=== PATIENT | male | born 1985 | race Caucasian/White ===

== ENCOUNTER 2023-04-14 01:34 | Emergency (ER) | payer OTHER ==
[2023-04-14] MEDS ORDERED: ORPHENADRINE 30 MG/ML 2 ML VIAL IM STA (01:52)
[2023-04-14] MEDS ORDERED: KETOROLAC 15 MG/ML 1 ML VIAL IM STA (01:52)
[2023-04-14] MEDS ORDERED: DEXAMETHASONE SOD PHOSPHATE 10 MG/ML 1 ML VIAL IM STA (01:52)
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
[2023-04-14 02:45] VITALS: BP 128/74; PULSE 71; RESP 20; TEMP 98.2
[2023-04-14] MEDS ORDERED: LIDOCAINE 5% PATCH TOPICAL SCH (09:00)
== END 2023-04-14 03:07 | disposition home or self-care (01) ==
LOC: EC 01:34
DX: S39.012A Strain of muscle, fascia and tendon of lower back, initial encounter (principal); F17.290 Nicotine dependence, other tobacco product, uncomplicated; Z88.5 Allergy status to narcotic agent; W06.XXXA Fall from bed, initial encounter
CPT/HCPCS: 99283; 96372 ×3; J1100; J2360; J1885

== ENCOUNTER 2023-05-08 02:09 | Emergency (ER) | payer OTHER ==
[2023-05-08 02:22] VITALS: RESP 16
[2023-05-08] MEDS ORDERED: MORPHINE SULFATE 4 MG/ML SYRINGE IV STA (03:11)
[2023-05-08 03:44] LABS: Basophils % (A) 0 %; Eosinophils # (A) 0.2 k/uL (0-0.7); Eosinophils % (A) 2 %; HCT 48.2 % (39.0-53.0); HGB 16.3 gm/dL (13.0-17.5); Lymphocytes # (A) 2.7 k/uL (1.0-4.8); Lymphocytes % (A) 32 %; MCHC 33.7 g/dL (31.0-37.0); MCV 85.9 fL (80.0-100.0); Mean Platelet Volume 7.6; Monocytes # (A) 0.5 k/uL (0-1.0); Monocytes % (A) 5 %; Neutrophils # (A) 4.9 k/uL (1.3-7.7); Neutrophils % (A) 58 %; Platelet Count 230 k/uL (150-450); RBC 5.61 m/uL (4.30-5.90); RDW 13.7 % (11.5-15.5); WBC 8.4 k/uL (3.8-10.6)
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
[2023-05-08 03:50] LABS: AST 367 U/L (17-59); African American GFR (CKD) >90 (>60 ml/min/1.73 sqM); Albumin 3.9 g/dL (3.5-5.0); Alkaline Phosphatase 58 U/L (38-126); Anion Gap 10 mmol/L; Blood Urea Nitrogen 14 mg/dL (9-20); Calcium 8.8 mg/dL (8.4-10.2); Carbon Dioxide 20 mmol/L (22-30); Chloride 108 mmol/L (98-107); Glucose 140 mg/dL (74-99); Lipase 108 U/L (23-300); Magnesium 2.3 mg/dL (1.6-2.3); Non-African American GFR(CKD) >90 (>60 ml/min/1.73 sqM); Sodium 138 mmol/L (137-145); Total Bilirubin 0.5 mg/dL (0.2-1.3); Total Protein 7.5 g/dL (6.3-8.2)
[2023-05-08 03:55] LABS: INR 1.1 (<1.2); Partial Thromboplastin Time 23.9 sec (22.0-30.0); Prothrombin Time 11.8 sec (9.0-12.0)
[2023-05-08 03:56] LABS: ALT 1090 U/L (4-49)
[2023-05-08] MEDS ORDERED: SODIUM CHLORIDE 0.9% 1,000 ML IV STA (04:32)
[2023-05-08 06:46] VITALS: BP 117/64; PULSE 73; TEMP 98.1
--- NOTE | 2023-05-08 07:42 | XR ---
EXAMINATION TYPE: XR chest 1V portable DATE OF EXAM: 05/08/2023 COMPARISON: None INDICATION: Chest pain nausea vomiting TECHNIQUE: Single frontal view of the chest is obtained. FINDINGS: The heart size is normal. The pulmonary vasculature is normal. The lungs are clear. IMPRESSION: 1. No acute pulmonary process.
[2023-05-08 11:17] LABS: Hepatitis C IgG Antibody Reactive (Non-Reactive)
[2023-05-08 11:25] LABS: Hepatitis A Antibody IgM Nonreactive; Hepatitis B Core IgM Nonreactive; Hepatitis B Surface Antigen Nonreactive
== END 2023-05-08 07:37 | disposition home or self-care (01) ==
LOC: EC 02:09
DX: R07.89 Other chest pain (principal); F17.290 Nicotine dependence, other tobacco product, uncomplicated; Z88.5 Allergy status to narcotic agent
CPT/HCPCS: 36415; 93005; 85379; 83880; 80053; 80074; 83690; 83735; 84484; 85025; 85610; 85730; 71045; 99285; 96374; J2270

== ENCOUNTER 2023-05-14 21:22 | Emergency (ER) | payer OTHER ==
[2023-05-14] MEDS ORDERED: SODIUM CHLORIDE 0.9% 1,000 ML IV ONE (21:38)
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
[2023-05-14 21:53] LABS: Basophils % (A) 0 %; Eosinophils % (A) 0 %; HGB 14.8 gm/dL (13.0-17.5); Lymphocytes # (A) 0.8 k/uL (1.0-4.8); Lymphocytes % (A) 7 %; MCH 28.1 pg (25.0-35.0); MCHC 32.3 g/dL (31.0-37.0); MCV 87.2 fL (80.0-100.0); Mean Platelet Volume 7.2; Monocytes # (A) 0.5 k/uL (0-1.0); Monocytes % (A) 4 %; Neutrophils # (A) 11.3 k/uL (1.3-7.7); Neutrophils % (A) 89 %; Platelet Count 206 k/uL (150-450); RBC 5.27 m/uL (4.30-5.90); RDW 13.3 % (11.5-15.5); WBC 12.8 k/uL (3.8-10.6)
[2023-05-14 21:56] VITALS: RESP 18; TEMP 98.2
[2023-05-14 22:07] LABS: African American GFR (CKD) 82 (>60 ml/min/1.73 sqM); Anion Gap 9 mmol/L; Blood Urea Nitrogen 14 mg/dL (9-20); Calcium 8.3 mg/dL (8.4-10.2); Carbon Dioxide 24 mmol/L (22-30); Chloride 105 mmol/L (98-107); Glucose 169 mg/dL (74-99); Non-African American GFR(CKD) 71 (>60 ml/min/1.73 sqM); Potassium 4.2 mmol/L (3.5-5.1); Sodium 138 mmol/L (137-145)
[2023-05-14 23:57] VITALS: BP 135/82; PULSE 82
== END 2023-05-14 23:36 | disposition home or self-care (01) ==
LOC: EC 21:22
DX: T40.601A Poisoning by unspecified narcotics, accidental (unintentional), initial encounter (principal); F17.290 Nicotine dependence, other tobacco product, uncomplicated; Z88.5 Allergy status to narcotic agent
CPT/HCPCS: 36415; 80048; 85025; 93005; 96360; 99284

== ENCOUNTER 2023-05-15 02:30 | Inpatient (IN) | payer OTHER ==
[2023-05-15] MEDS ORDERED: NALOXONE 0.4 MG/ML 1 ML VIAL IVP PRN (02:40)
[2023-05-15] MEDS ORDERED: SODIUM CHLORIDE 0.9% 1,000 ML IV ONE (02:41)
[2023-05-15] MEDS ORDERED: NALOXONE 0.4 MG/ML 1 ML VIAL IVP STA ×2 (02:43→04:50)
[2023-05-15] MEDS ORDERED: ONDANSETRON 4 MG/2 ML VIAL IVP STA (02:52)
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
[2023-05-15] MEDS ORDERED: METOCLOPRAMIDE 5 MG/ML 2 ML VIAL IVP STA (03:28)
[2023-05-15 03:36] LABS: Basophils % (A) 0 %; Eosinophils % (A) 0 %; HCT 47.8 % (39.0-53.0); HGB 16.1 gm/dL (13.0-17.5); Lymphocytes % (A) 8 %; MCH 29.7 pg (25.0-35.0); MCHC 33.6 g/dL (31.0-37.0); MCV 88.4 fL (80.0-100.0); Mean Platelet Volume 7.3; Monocytes # (A) 0.6 k/uL (0-1.0); Monocytes % (A) 5 %; Neutrophils # (A) 10.6 k/uL (1.3-7.7); Neutrophils % (A) 86 %; Platelet Count 223 k/uL (150-450); RBC 5.41 m/uL (4.30-5.90); RDW 13.5 % (11.5-15.5); WBC 12.3 k/uL (3.8-10.6)
[2023-05-15 03:45] LABS: ALT 494 U/L (4-49); AST 200 U/L (17-59); African American GFR (CKD) 84 (>60 ml/min/1.73 sqM); Alkaline Phosphatase 59 U/L (38-126); Anion Gap 11 mmol/L; Blood Urea Nitrogen 15 mg/dL (9-20); Calcium 8.4 mg/dL (8.4-10.2); Carbon Dioxide 24 mmol/L (22-30); Chloride 103 mmol/L (98-107); Glucose 190 mg/dL (74-99); Non-African American GFR(CKD) 73 (>60 ml/min/1.73 sqM); Potassium 4.4 mmol/L (3.5-5.1); Sodium 138 mmol/L (137-145); Total Bilirubin 0.6 mg/dL (0.2-1.3); Total Protein 7.5 g/dL (6.3-8.2)
[2023-05-15 03:58] LABS: VBG PH 7.3 (7.31-7.41)
[2023-05-15 04:46] LABS: INR 1.1 (<1.2); Partial Thromboplastin Time 22.2 sec (22.0-30.0); Prothrombin Time 11.6 sec (9.0-12.0)
[2023-05-15] MEDS ORDERED: SODIUM CHLORIDE 0.9% 1,000 ML IV SCH (05:00)
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
--- NOTE | 2023-05-15 06:16 | XR ---
EXAMINATION TYPE: XR chest 1V DATE OF EXAM: 05/15/2023 2:55 AM COMPARISON: Chest radiographs from 05/08/2023 TECHNIQUE: XR chest 1V Portable AP radiograph of the chest. CLINICAL INDICATION:Male, 38 years old with history of cough; FINDINGS: Lungs/Pleura: No pleural effusion or pneumothorax. Diffuse patchy airspace opacities throughout the l ungs. Heart/mediastinum: Cardiomediastinal silhouette is unremarkable. Musculoskeletal: No acute osseous pathology. IMPRESSION: Diffuse patchy airspace opacities throughout the lungs concerning for pneumonia versus pulmonary vita a.
[2023-05-15] MEDS: FUROSEMIDE 10 MG/ML 4 ML VIAL IV SCH (10:44)
[2023-05-15] MEDS: HEPARIN SODIUM,PORCINE/PF 5,000 UNIT/0.5 ML SYRINGE SQ SCH ×3 (10:44→23:14)
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
[2023-05-15 11:49] LABS: Appearance,Urine Clear (Clear); Bilirubin,Urine Negative (Negative); Blood,Urine Negative (Negative); Color,Urine Light Yellow; Glucose,Urine (UA) Negative (Negative); Ketones,Urine Negative (Negative); Leukocyte Esterase,Urine Negative (Negative); Nitrite,Urine Negative (Negative); PH, Urine 5.5 (5.0-8.0); Protein,Urine Negative (Negative); Specific Gravity,Urine 1.011 (1.001-1.035); Urobilinogen,Urine <2.0 mg/dL (<2.0)
[2023-05-15 13:56] LABS: Amphetamine Screen,Urine Not Detected (NotDetected); Barbiturate Screen,Urine Not Detected (NotDetected); Benzodiazepines Screen,Urine Not Detected (NotDetected); Cocaine Screen,Urine Detected (NotDetected); Methadone Screen, Urine Not Detected (NotDetected); Opiate Screen,Urine Not Detected (NotDetected); Oxycodone Screen, Urine Not Detected (NotDetected); Phencyclidine Screen,Urine Not Detected (NotDetected); Tricyclic Antidepressant,Urine Not Detected (NotDetected); Urn Cannabinoid Scrn Not Detected (NotDetected)
[2023-05-15] MEDS ORDERED: ALPRAZolam 1 MG TAB PO PRN (15:16)
[2023-05-15] MEDS ORDERED: MAG HYDROX/AL HYDROX/SIMETH 30 ML CUP PO PRN (21:03)
[2023-05-15] MEDS ORDERED: chlorproMAZINE 25 MG TAB PO PRN (21:03)
[2023-05-15] MEDS: PANTOPRAZOLE 40 MG TABLET PO SCH (21:20)
[2023-05-16 08:08] LABS: Basophils % (A) 0 %; Eosinophils # (A) 0.1 k/uL (0-0.7); Eosinophils % (A) 1 %; HCT 46.2 % (39.0-53.0); HGB 15.4 gm/dL (13.0-17.5); Lymphocytes # (A) 2.5 k/uL (1.0-4.8); Lymphocytes % (A) 30 %; MCH 28.7 pg (25.0-35.0); MCHC 33.2 g/dL (31.0-37.0); MCV 86.4 fL (80.0-100.0); Mean Platelet Volume 7.9; Monocytes # (A) 0.6 k/uL (0-1.0); Monocytes % (A) 7 %; Neutrophils # (A) 5.1 k/uL (1.3-7.7); Neutrophils % (A) 60 %; Platelet Count 197 k/uL (150-450); RBC 5.35 m/uL (4.30-5.90); RDW 13.7 % (11.5-15.5); WBC 8.5 k/uL (3.8-10.6)
[2023-05-16] MEDS: HEPARIN SODIUM,PORCINE/PF 5,000 UNIT/0.5 ML SYRINGE SQ SCH ×2 (08:19→17:02)
[2023-05-16] MEDS: PANTOPRAZOLE 40 MG TABLET PO SCH (08:22)
[2023-05-16] MEDS: FUROSEMIDE 10 MG/ML 4 ML VIAL IV SCH (08:22)
[2023-05-16 08:35] LABS: African American GFR (CKD) >90 (>60 ml/min/1.73 sqM); Anion Gap 6 mmol/L; Blood Urea Nitrogen 12 mg/dL (9-20); Calcium 8.2 mg/dL (8.4-10.2); Carbon Dioxide 29 mmol/L (22-30); Chloride 102 mmol/L (98-107); Glucose 105 mg/dL (74-99); Non-African American GFR(CKD) >90 (>60 ml/min/1.73 sqM); Potassium 3.8 mmol/L (3.5-5.1); Sodium 137 mmol/L (137-145)
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
[2023-05-16] MEDS ORDERED: NALOXONE 0.4 MG/ML 1 ML VIAL ONE (13:24)
[2023-05-16 13:26] LABS: Glucose,Whole Blood 117 mg/dL (70-110)
[2023-05-16] MEDS ORDERED: NALOXONE 0.4 MG/ML 1 ML VIAL IM STA (13:27)
[2023-05-16] MEDS: NALOXONE 0.4 MG/ML 1 ML VIAL IVP PRN ×2 (13:33→14:27)
[2023-05-16] MEDS ORDERED: NALOXONE 0.4 MG/ML 1 ML VIAL IVP PRN (13:37)
[2023-05-16] MEDS: ONDANSETRON 4 MG/2 ML VIAL IVP PRN (13:45)
[2023-05-16 14:17] LABS: Glucose,Whole Blood 137 mg/dL (70-110)
--- NOTE | 2023-05-16 14:22 | XR ---
EXAMINATION TYPE: XR chest 1V portable DATE OF EXAM: 05/16/2023 COMPARISON: 05/25/2023 HISTORY: Respiratory arrest TECHNIQUE: Single frontal view of the chest is obtained. FINDINGS: There is bilateral patchy areas of 3 months. Heart size is stable mildly prominent. Sizabl e pneumothorax. No sizable pleural effusion. Osseous structures are stable IMPRESSION: 1. Patchy bilateral infiltrate most noted in the left upper lobe correlate for pneumonia including at ypical pneumonia.
--- NOTE | 2023-05-16 14:46 | P.PN ---
Subjective Progress Note Date: 05/16/23 38-year-old male with PMH of IV opiate abuse presents the ED for unresponsiveness. He was initially seen in the ED on 05/14 after suspected overdose of IV fentanyl. At that time, he received Narcan on the field which immediately improved his mental status. He was observed and subsequently discharged from the ED. He presented back to the hospital on 05/15 for unresponsiveness which improved with Narcan. In the ED, He was noted to be hypoxic with O2 saturation of 83% which required BiPAP. CBC showed hemoglobin of 12.3. Coagulation panel within normal limits. DVT showed pH of 7.3. CMP showed creatinine of 1.26, glucose 190, AST of 200, ALT of 494. Troponin was 0.027. Urinalysis negative. UDS positive for cocaine. EKG showed sinus rhythm with ventricular rate of 83. Chest x-ray showed findings of pulmonary edema. He was eventually weaned off BiPAP and admitted for further management. 05/16 A-Team was called for unresponsiveness. Earlier, a female friend was present in the room. Patient was noted to be unresponsive and severely hypoxic. He was placed on BiPAP and CYBER THREAT ANALYST was called for possible intubation. He was given 1.4 mg of Narcan IV which immediately improved his symtoms. His most recent BP is 122/74 with HR of 77 and O2 saturation of 95% on RA. He denies any illicit substance use today. Chest x-ray was ordered which showed left upper lobe infiltrate. Plans to move him to MICU for closer monitoring. Visitors will be restricted and psychiatry consultation placed. CBC is unremarkable. BMP shows glucose 105 and calcium of 8.2. General: non toxic, mild distress, appears at stated age Derm: warm, dry Head: atraumatic, normocephalic, symmetric Eyes: pinpoint pupils, no lid lag, anicteric sclera Cardiovascular: S1S2 reg, no murmur Lungs: Decreased BS bilateral, no rhonchi, no rales , no accessory muscle use Ext: no gross muscle atrophy, no edema, no contractures Acute hypoxic respiratory failure Pulmonary edema Opiate overdose Transaminitis Resolved: KERVIN, Leukocytosis Based on my assessment of this patient, this patient meets a high complexity level of care. Patient has an acute diagnosis of AHRF that poses a threat to life or bodily function. Today, he was suspected of another overdose requiring multiple doses of Narcan. He was almost intubated. He will be moved to ICU for closer monitoring. Advanced neurochecks are placed. Telemetry monitoring. Narcan drip if necessary. Continue lasix 40 mg IV QD for pulmonary edema. Psychiatry consult is placed as patient is a danger to himself. I have reviewed the following interventional sale consultant notes: Pulmonology note reviewed. I have reviewed the results of the following tests: CBC, BMP. I have ordered the following tests: STAT CXR ordered. I have discussed the care of this patient with the following independent historian: I have independently interpreted the following test below: CXR I have discussed the management of this patient with the following physician: Objective - Vital Signs Vital signs: Vital Signs Temp 98.0 F 05/16/23 11:45 Pulse 77 05/16/23 11:45 Resp 6 L 05/16/23 14:27 BP 122/74 05/16/23 11:45 Pulse Ox 95 05/16/23 11:45 FiO2 50 05/15/23 07:43 Intake & Output 05/15/23 05/16/23 05/16/23 18:59 06:59 18:59 Intake Total 1200 237 Output Total 600 500 Balance 600 -263 Weight 136.078 kg Intake: Oral 1200 237 Output: Urine 600 500 Other: Voiding Method Urinal Urinal - Labs CBC & Chem 7: 05/16/23 07:20 05/16/23 07:20 Labs: Abnormal Lab Results - Last 24 Hours (Table) 05/16/23 05/16/23 05/16/23 Range/Units 07:20 13:22 14:14 Glucose 105 H (74-99) mg/dL POC Glucose (mg/dL) 117 H 137 H (70-110) mg/dL Calcium 8.2 L (8.4-10.2) mg/dL
[2023-05-16] MEDS: NALOXONE (MDV) 2 MG in SODIUM CHLORIDE 0.9% 250 ML IV SCH ×2 (15:21→20:46)
[2023-05-16] MEDS: NICOTINE 21MG/24HR PATCH TRANSDERM SCH (17:02)
[2023-05-16] MEDS ORDERED: LORazepam 2 MG/ML INJ IV PRN (17:22)
[2023-05-16] MEDS ORDERED: LORazepam 1 MG TAB PO PRN (17:31)
[2023-05-17] MEDS: NALOXONE (MDV) 2 MG in SODIUM CHLORIDE 0.9% 250 ML IV SCH ×4 (01:38→08:47)
[2023-05-17] MEDS: HEPARIN SODIUM,PORCINE/PF 5,000 UNIT/0.5 ML SYRINGE SQ SCH ×2 (01:39→08:47)
[2023-05-17 04:04] VITALS: TEMP 98.7
--- NOTE | 2023-05-17 07:57 | XR ---
EXAMINATION TYPE: XR chest 1V portable DATE OF EXAM: 05/17/2023 COMPARISON: 05/16/2023 HISTORY: Shortness of breath TECHNIQUE: Single frontal view of the chest is obtained. FINDINGS: There is a patchy bilateral infiltrate. The left upper lobe. Heart size is mildly enlarged with no sizable pleural effusion. There is no pneumothorax. IMPRESSION: Stable chest x-ray. Multifocal pneumonia favored over CHF.
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
[2023-05-17] MEDS ORDERED: ACETAMINOPHEN TAB 500 MG TAB PO PRN (08:13)
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
[2023-05-17 08:38] LABS: Basophils % (A) 0 %; Eosinophils # (A) 0.2 k/uL (0-0.7); Eosinophils % (A) 2 %; HCT 47.1 % (39.0-53.0); HGB 15.6 gm/dL (13.0-17.5); Lymphocytes # (A) 3.2 k/uL (1.0-4.8); Lymphocytes % (A) 33 %; MCH 29.4 pg (25.0-35.0); MCHC 33.2 g/dL (31.0-37.0); MCV 88.6 fL (80.0-100.0); Mean Platelet Volume 7.4; Monocytes # (A) 0.7 k/uL (0-1.0); Monocytes % (A) 7 %; Neutrophils # (A) 5.5 k/uL (1.3-7.7); Neutrophils % (A) 56 %; Platelet Count 238 k/uL (150-450); RBC 5.31 m/uL (4.30-5.90); RDW 13.4 % (11.5-15.5); WBC 9.7 k/uL (3.8-10.6)
[2023-05-17 08:46] LABS: African American GFR (CKD) >90 (>60 ml/min/1.73 sqM); Anion Gap 6 mmol/L; Blood Urea Nitrogen 15 mg/dL (9-20); Calcium 8.4 mg/dL (8.4-10.2); Carbon Dioxide 32 mmol/L (22-30); Chloride 101 mmol/L (98-107); Glucose 105 mg/dL (74-99); Non-African American GFR(CKD) >90 (>60 ml/min/1.73 sqM); Potassium 4.2 mmol/L (3.5-5.1); Sodium 139 mmol/L (137-145)
[2023-05-17] MEDS: FUROSEMIDE 10 MG/ML 4 ML VIAL IV SCH (08:47)
[2023-05-17] MEDS: PANTOPRAZOLE 40 MG TABLET PO SCH (08:47)
[2023-05-17] MEDS: NICOTINE 21MG/24HR PATCH TRANSDERM SCH (08:48)
[2023-05-17] MEDS: ONDANSETRON 4 MG/2 ML VIAL IVP PRN (08:59)
[2023-05-17 09:20] VITALS: BP 112/68; PULSE 92; RESP 14
--- NOTE | 2023-05-17 10:34 | P.DS ---
Providers Date of admission: 05/15/23 05:02 Expected date of discharge: 05/17/23 Attending physician: Andrea Joseph MD Consults: 05/15/23 04:54 Consult Physician Routine Consulting Provider: Denzel Grayson Consult Reason/Comments: hypoxic respiratory failure, overdose, on bipap Do you want consulting provider notified?: Already Contacted 05/16/23 13:55 Consult Physician Routine Consulting Provider: Brannon Boogie Consult Reason/Comments: multiple intential overdose, threat to himself Do you want consulting provider notified?: Yes Primary care physician: Stated None Hospital Course: Acute hypoxic respiratory failure Pulmonary edema Opiate overdose Transaminitis Resolved: KERVIN, Leukocytosis 38-year-old male with PMH of IV opiate abuse presented the ED for unresp onsiveness. He was initially seen in the ED on 05/14 after suspected overdose of IV fentanyl. At that time, he received Narcan on the field which immediately improved his mental status. He was observed and subsequently discharged from the ED. He presented back to the hospital on 05/15 for unresponsiveness which improved with Narcan. In the ED, He was noted to be hypoxic with O2 saturation of 83% which required BiPAP. CBC showed hemoglobin of 12.3. Coagulation panel within normal limits. DVT showed pH of 7.3. CMP showed creatinine of 1.26, glucose 190, AST of 200, ALT of 494. Troponin was 0.027. Urinalysis negative. UDS positive for cocaine. EKG showed sinus rhythm with ventricular rate of 83. Chest x-ray showed findings of pulmonary edema. He was eventually weaned off BiPAP and admitted for further management. On 05/16 A-Team was called for unresponsiveness. Earlier, a female friend was present in the room. Patient was noted to be unresponsive and severely hypoxic. He was placed on BiPAP and EXECUTIVE SECRETARY was called for possible intubation. He was given 1.4 mg of Narcan IV which immediately improved his symtoms. His most recent BP is 122/74 with HR of 77 and O2 saturation of 95% on RA. He denies any illicit substance use today. Chest x- ray was ordered which showed left upper lobe infiltrate. He was moved to MICU for closer monitoring. He did well overnight in the MICU and was on room air by the following day. He indicated desire to go to [place] for rehab following discharge, and had made own arrangements to do so. He will require follow up with cardiology regarding pulmonary edema. Gen: awake, alert HEENT: normocephalic, atraumatic, good hearing acuity, moist mucous membranes Resp: good air exchange, breathing comfortably with no accessory muscle use CVS: good distal perfusion x 4, GI: soft, NTTP, ND : no SPT, no CVAT, marrufo catheter not present MSK: no pitting edema, no clubbing Neuro: non-focal, moving all extremities Psych: cooperative, euthymic mood Patient Condition at Discharge: Good Plan - Discharge Summary Discharge Rx Participant: Yes New Discharge Prescriptions: New Furosemide [Lasix] 40 mg PO DAILY #20 tablet Acetaminophen Tab [Tylenol] 1,000 mg PO Q6HR PRN tab PRN Reason: Fever And/ Or Pain Discharge Medication List Acetaminophen Tab [Tylenol] 1,000 mg PO Q6HR PRN tab 05/17/23 [Rx] Furosemide [Lasix] 40 mg PO DAILY #20 tablet 05/17/23 [Rx] Follow up Appointment(s)/Referral(s): None,Stated [Primary Care Provider] - 1-2 days Francisco J Sepulveda MD [STAFF PHYSICIAN] - 1 Week Patient Instructions/Handouts: Narcotic Safety (DC) Discharge Disposition: HOME SELF-CARE
[2023-05-17 18:02] LABS: Urine Alcohol Negative (Negative); Urine Barbiturate Negative (Negative); Urine Cocaine Positive (Negative); Urine Methadone Negative (Negative); Urine Opiates Negative (Negative); Urine Phencyclidine Negative (Negative)
== END 2023-05-17 10:07 | disposition home or self-care (01) | DRG 812 ==
LOC: EC 02:30 → 3SCARD 05:02 → 2SICU 05-16 14:07
PROVIDERS: ADMIT Internal Medicine; ATTEND Internal Medicine
PROC: 5A09357 Assistance with Respiratory Ventilation, Less than 24 Consecutive Hours, Continuous Positive Airway Pressure (ICD-10-PCS; principal; 2023-05-15)
DX: T40.411A Poisoning by fentanyl or fentanyl analogs, accidental (unintentional), initial encounter (principal); N17.9 Acute kidney failure, unspecified; R74.01 Elevation of levels of liver transaminase levels; J96.01 Acute respiratory failure with hypoxia; J81.1 Chronic pulmonary edema; G93.89 Other specified disorders of brain; E87.70 Fluid overload, unspecified; D72.829 Elevated white blood cell count, unspecified; F41.9 Anxiety disorder, unspecified; R04.2 Hemoptysis; B19.20 Unspecified viral hepatitis C without hepatic coma; F17.290 Nicotine dependence, other tobacco product, uncomplicated; Z87.828 Personal history of other (healed) physical injury and trauma; Z88.5 Allergy status to narcotic agent; Z82.49 Family history of ischemic heart disease and other diseases of the circulatory system; Z71.51 Drug abuse counseling and surveillance of drug abuser
CPT/HCPCS: 36415; 71045; 80048; 80053; 80306; 81003; 82803; 84484; 85025; 85610; 85730; 93005; 94660; 96374; 96375; 99291

== ENCOUNTER 2023-06-27 02:49 | Inpatient (IN) | payer OTHER ==
[2023-06-27] MEDS ORDERED: ONDANSETRON 4 MG/2 ML VIAL IVP STA (02:56)
[2023-06-27] MEDS ORDERED: NALOXONE 0.4 MG/ML 1 ML VIAL IVP STA (02:56)
[2023-06-27 03:09] LABS: Basophils % (A) 0 %; Eosinophils # (A) 0.1 k/uL (0-0.7); Eosinophils % (A) 0 %; HCT 47.8 % (39.0-53.0); HGB 15.8 gm/dL (13.0-17.5); Lymphocytes # (A) 0.6 k/uL (1.0-4.8); Lymphocytes % (A) 4 %; MCH 28.8 pg (25.0-35.0); MCHC 33.1 g/dL (31.0-37.0); MCV 87.1 fL (80.0-100.0); Mean Platelet Volume 7.1; Monocytes # (A) 0.7 k/uL (0-1.0); Monocytes % (A) 4 %; Neutrophils # (A) 13.5 k/uL (1.3-7.7); Neutrophils % (A) 91 %; Platelet Count 233 k/uL (150-450); RBC 5.49 m/uL (4.30-5.90); RDW 13.5 % (11.5-15.5); WBC 14.9 k/uL (3.8-10.6)
[2023-06-27] MEDS: NALOXONE (MDV) 2 MG in SODIUM CHLORIDE 0.9% 250 ML IV SCH ×7 (03:22→23:12)
[2023-06-27] MEDS ORDERED: NALOXONE 0.4 MG/ML 1 ML VIAL IV PRN (03:56)
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
[2023-06-27 04:39] LABS: ALT 412 U/L (4-49); AST 191 U/L (17-59); African American GFR (CKD) 61 (>60 ml/min/1.73 sqM); Albumin 4.3 g/dL (3.5-5.0); Alcohol <10 mg/dL; Alkaline Phosphatase 56 U/L (38-126); Blood Urea Nitrogen 21 mg/dL (9-20); Calcium 8.7 mg/dL (8.4-10.2); Carbon Dioxide 24 mmol/L (22-30); Glucose 160 mg/dL (74-99); Lipase 89 U/L (23-300); Magnesium 2.2 mg/dL (1.6-2.3); Non-African American GFR(CKD) 52 (>60 ml/min/1.73 sqM); Total Bilirubin 0.8 mg/dL (0.2-1.3); Total Protein 7.8 g/dL (6.3-8.2)
[2023-06-27 05:13] LABS: Glucose,Whole Blood 90 mg/dL (70-110)
[2023-06-27 05:21] LABS: Anion Gap 12 mmol/L; Chloride 100 mmol/L (98-107); Potassium 4.5 mmol/L (3.5-5.1); Sodium 136 mmol/L (137-145)
[2023-06-27] MEDS ORDERED: ONDANSETRON 4 MG/2 ML VIAL IVP PRN (06:51)
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
[2023-06-27] MEDS: SODIUM CHLORIDE 0.9% 1,000 ML IV SCH ×2 (08:11→20:22)
[2023-06-27 09:33] LABS: Appearance,Urine Clear (Clear); Bilirubin,Urine Negative (Negative); Blood,Urine Negative (Negative); Glucose,Urine (UA) Negative (Negative); Ketones,Urine 1+ (Negative); Leukocyte Esterase,Urine Negative (Negative); Nitrite,Urine Negative (Negative); PH, Urine 5.5 (5.0-8.0); Protein,Urine Trace (Negative); Specific Gravity,Urine 1.022 (1.001-1.035); Urobilinogen,Urine <2.0 mg/dL (<2.0)
[2023-06-27] MEDS: HEPARIN SODIUM,PORCINE 5,000 UNIT/ML 1 ML VIAL SQ SCH ×2 (09:34→21:13)
[2023-06-27] MEDS: PANTOPRAZOLE 40 MG TABLET PO SCH (09:34)
[2023-06-27 09:38] LABS: Color,Urine Yellow
--- NOTE | 2023-06-27 09:50 | XR ---
EXAMINATION TYPE: XR chest 1V portable DATE OF EXAM: 06/27/2023 COMPARISON: 05/17/2023 HISTORY: TECHNIQUE: Single frontal view of the chest is obtained. FINDINGS: There is no focal air space opacity, pleural effusion, or pneumothorax seen. The cardiac silhouette size is within normal limits. The osseous structures are intact. Scoliosis of the spine. Biapical pleural thickening. IMPRESSION: No acute process.
[2023-06-27 11:10] LABS: Hepatitis C IgG Antibody Reactive (Non-Reactive)
[2023-06-27 11:44] LABS: Hepatitis A Antibody IgM Nonreactive; Hepatitis B Core IgM Nonreactive; Hepatitis B Surface Antigen Nonreactive
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
[2023-06-27 22:13] LABS: Urine Alcohol Negative (Negative); Urine Barbiturate Negative (Negative); Urine Cocaine Negative (Negative); Urine Methadone Negative (Negative); Urine Opiates Negative (Negative); Urine Phencyclidine Negative (Negative)
[2023-06-28] MEDS: SODIUM CHLORIDE 0.9% 1,000 ML IV SCH (00:09)
[2023-06-28] MEDS: NALOXONE (MDV) 2 MG in SODIUM CHLORIDE 0.9% 250 ML IV SCH ×3 (01:16→07:38)
[2023-06-28] MEDS: PANTOPRAZOLE 40 MG TABLET PO SCH (06:49)
[2023-06-28 06:54] LABS: HGB 15.5 gm/dL (13.0-17.5); MCH 29.3 pg (25.0-35.0); MCHC 33.1 g/dL (31.0-37.0); MCV 88.7 fL (80.0-100.0); Mean Platelet Volume 7.3; Platelet Count 154 k/uL (150-450); RDW 13.5 % (11.5-15.5); WBC 5.6 k/uL (3.8-10.6)
[2023-06-28 06:59] LABS: African American GFR (CKD) >90 (>60 ml/min/1.73 sqM); Anion Gap 5 mmol/L; Blood Urea Nitrogen 14 mg/dL (9-20); Calcium 8.2 mg/dL (8.4-10.2); Carbon Dioxide 25 mmol/L (22-30); Chloride 106 mmol/L (98-107); Creatine Kinase 746 U/L (55-170); Glucose 104 mg/dL (74-99); Non-African American GFR(CKD) >90 (>60 ml/min/1.73 sqM); Sodium 136 mmol/L (137-145)
[2023-06-28] MEDS: HEPARIN SODIUM,PORCINE 5,000 UNIT/ML 1 ML VIAL SQ SCH (08:14)
[2023-06-28 08:17] VITALS: BP 116/73; PULSE 68; RESP 15; TEMP 98.3
--- NOTE | 2023-06-28 08:53 | P.PN ---
Subjective Progress Note Date: 06/28/23 I am seeing this patient in new consultation today 06/27/2023 in the intensive care unit for acute opiate overdose. Patient is a 38-year-old male with past medical history significant for substance abuse. Patient has reportedly abused heroin and cocaine in the past. He currently resides in a senior living house for rehabilitation. Patient was found earlier this morning by the supervisor melt house unresponsive and cyanotic. Unknown how long the patient was down. information systems manager administered 16 mg of intranasal Narcan, and then proceeded to call EMS. Fentanyl was reportedly found with the patient's belongings. No reported episodes of emesis or aspiration. On arrival to the emergency room, the patient was started on a Narcan infusion which is currently infusing at 0.6 mg/h. He is drowsy, but does awaken and answer questions. He is on room air and in no acute distress. CBC on arrival showed WBC count of 14.9, hemoglobin 15.8, hematocrit 47.8, platelets 230. BMP on arrival showed a sodium 136, potassium 4.5, chloride 100, serum bicarbonate 24, BUN 21, creatinine 1.66, blood glucose 160. AST and ALT were elevated. Serum EtOH less than 10. Urine drug screen not collected. No need for intubation. Patient is hemodynamically stable at this time. On today's evaluation of a 2022, the patient is awake and alert and the patient has been off Narcan drip since yesterday. No signs of any respiratory suppression. No altered mentation. No focal neurological deficits. Labs are normal. There was slightly elevated and the patient a mild component of rhabdomyolysis and is also improving. He is still on IV fluids normal saline at rate of 75 mL an hour. No other active issues for now. Is on room air oxygen. No respiratory distress. No agitation. Objective - Vital Signs Vital signs: Vital Signs Temp 98.3 F 06/28/23 08:00 Pulse 68 06/28/23 08:00 Resp 15 06/28/23 08:00 BP 116/73 06/28/23 08:00 Pulse Ox 96 06/28/23 08:00 FiO2 Intake & Output 06/27/23 06/28/23 06/28/23 18:59 06:59 18:59 Intake Total 4160.133 1003 Output Total 1100 340 650 Balance 437.619 3707 -650 Intake: IV 900 750 Naloxone (v) 2 mg In 225 Sodium Chloride 0.9% 250 ml @ 0.6 MG/HR 75 mls/hr IV .Q3H20M [facility] Rx#: [id number] Naloxone (Mdv) 2 mg In 0 Sodium Chloride 0.9% 250 ml @ 0.6 MG/HR 75 mls/hr IV .Q3H20M [facility] Rx#: [id number] Sodium Chloride 0.9% 1, 675 750 000 ml @ 75 mls/hr IV . [id number] [facility] Rx#:[id number] Intake, IV Titration 181.666 Amount Naloxone (Mdv) 2 mg In 181.666 Sodium Chloride 0.9% 250 ml @ 0.6 MG/HR 75 mls/hr IV .Q3H20M [facility] Rx#: [id number] Oral 820 2000 Output: Urine 1100 340 650 Other: Voiding Method Urinal Urinal # Voids 1 - Exam GENERAL EXAM: Drowsy, 38-year-old white male , comfortable in no apparent distress. HEAD: Normocephalic and atraumatic EYES: Normal reaction of pupils, equal size. NOSE: Clear with pink turbinates. THROAT: No erythema or exudates. NECK: No masses, no JVD. CHEST: No chest wall deformity. LUNGS: Equal air entry with no crackles, wheeze, rhonchi or dullness. On room air. No conversational dyspnea or accessory muscle use.. CVS: S1 and S2 normal with no audible murmur, regular rhythm. No extra heart sounds ABDOMEN: No hepatosplenomegaly, active bowel sounds, no guarding or rigidity. SPINE: No scoliosis or deformity SKIN: No rashes CENTRAL NERVOUS SYSTEM: No focal deficits, tone is normal in all 4 extremities. EXTREMITIES: There is no peripheral edema, clubbing, or cyanosis. Peripheral pulses are intact. - Labs CBC & Chem 7: 06/28/23 06:29 06/28/23 06:29 Labs: Abnormal Lab Results - Last 24 Hours (Table) 06/27/23 06/27/23 06/27/23 Range/Units 02:59 09:20 09:20 Sodium (137-145) mmol/L Glucose (74-99) mg/dL Calcium (8.4-10.2) mg/dL Creatine Kinase (55-170) U/L Urine Protein Trace H (Negative) Urine Ketones 1+ H (Negative) Ur Amphetamine Screen Positive A (Negative) Hep C IgG Ab Reactive A (Non-Reactive) 06/28/23 Range/Units 06:29 Sodium 136 L (137-145) mmol/L Glucose 104 H (74-99) mg/dL Calcium 8.2 L (8.4-10.2) mg/dL Creatine Kinase 746 H (55-170) U/L Urine Protein (Negative) Urine Ketones (Negative) Ur Amphetamine Screen (Negative) Hep C IgG Ab (Non-Reactive) Assessment and Plan Assessment: Acute opiate overdose, currently off the Narcan drip and normal neurologic status and respiratory status Acute kidney injury, creatinine 1.66, improved Elevated LFTs, patient has reported history of hepatitis C Polysubstance abuse disorder Mild rhabdomyolysis, improving Plan: Increase oral intake Increase mobility Possible home today No active issues today Should be able to move out of the intensive care unit
--- NOTE | 2023-06-28 11:03 | P.DS ---
Providers Date of admission: 06/27/23 03:57 Expected date of discharge: 06/28/23 Attending physician: Levi Haile Consults: 06/27/23 03:56 Consult Physician Stat Consulting Provider: Denzel Grayson Reason/Comments: Opiate overdose, on narcan gtt Do you want consulting provider notified?: Already Contacted Primary care physician: Stated None Hospital Course: * 38-year-old gentleman with past medical history significant for hepatitis C, liver disease presented to the emergency department with acute opiate overdose. Patient has past medical history significant for substance use. Patient has reportedly used heroin and cocaine in the past. [facility] Patient was known to be oriented at time of presentation. Patient was started on Narcan infusion. And was admitted to ICU. Workup obtained at the time of admission included CBC, basic metabolic panel, CPK levels. Liver profile was elevated as well. * Blood work at a time of admission showed white cell count of 14.9. Lactate count within normal limits. Basic metabolic panel showed sodium 136, 1.66 CPK 2377 patient tested positive for hep C IgG antibody as well * Evaluated at bedside in ICU he was alert and oriented 4. He has already been on Narcan drip since mentation had improved significantly * 06/28/2023 patient was resuscitated with fluid, significant improvement in CPK levels periods transitioned off Narcan, discharge from ICU once late by ICU team. After morning rounds on 06/28 patient alert and oriented 4 and discharged home PHYSICAL EXAMINATION: GENERAL: The patient is alert and oriented x3, not in any acute distress. Well developed, well nourished. HEENT: Pupils are round and equally reacting to light. EOMI. No scleral icterus. No conjunctival pallor. Normocephalic, atraumatic. No pharyngeal erythema. No thyromegaly. CARDIOVASCULAR: S1 and S2 present. No murmurs, rubs, or gallops. PULMONARY: Chest is clear to auscultation, no wheezing or crackles. ABDOMEN: Soft, nontender, nondistended, normoactive bowel sounds. No palpable organomegaly. MUSCULOSKELETAL: No joint swelling or deformity. EXTREMITIES: No cyanosis, clubbing, or pedal edema. NEUROLOGICAL: Gross neurological examination did not reveal any focal deficits. SKIN: No rashes. Assessment and plan * Acute toxic encephalopathy RESOLVED * Drug overdose/opiate overdose * Acute kidney injury * Transaminitis with history of hepatitis C * Hyponatremia * Polysubstance use disorder * Reactive leukocytosis * Consult obtained from medical ICU * Weaned off patient on IV fluid, Narcan drip * Follow-up on liver profile and CPK levels improving Plan - Discharge Summary Discharge Rx Participant: Yes New Discharge Prescriptions: No Action No Known Home Medications Discharge Medication List No Known Home Medications 06/27/23 [History] Follow up Appointment(s)/Referral(s): None,Stated [Primary Care Provider] - 1-2 days Activity/Diet/Wound Care/Special Instructions: Patient to complete [facility] Access Interview for inpatient substance abuse placement. Patient will facilitate placement himself. He can be discharged when medically stable. Discharge disposition either substance abuse rehab or return home until bed available at rehab center. Discharge/Stand Alone Forms: Outpatient Counseling, Inp Substance Abuse Facilities Discharge Disposition: HOME SELF-CARE
== END 2023-06-28 11:48 | disposition home or self-care (01) | DRG 812 ==
LOC: EC 02:49 → 2SICU 03:57
PROVIDERS: ADMIT Internal Medicine; ATTEND Internal Medicine
DX: T40.601A Poisoning by unspecified narcotics, accidental (unintentional), initial encounter (principal); G92.8 Other toxic encephalopathy; F11.10 Opioid abuse, uncomplicated; E87.1 Hypo-osmolality and hyponatremia; B19.20 Unspecified viral hepatitis C without hepatic coma; F32.A Depression, unspecified; F41.9 Anxiety disorder, unspecified; M62.82 Rhabdomyolysis; N17.9 Acute kidney failure, unspecified; Z82.49 Family history of ischemic heart disease and other diseases of the circulatory system; D72.829 Elevated white blood cell count, unspecified; F19.10 Other psychoactive substance abuse, uncomplicated; Z88.5 Allergy status to narcotic agent
CPT/HCPCS: 36415; 71045; 80048; 80053; 80074; 80306; 80320; 81003; 82550; 83690; 83735; 85025; 85027; 93005; 96365; 96366; 96375; 99285

== ENCOUNTER 2023-08-08 19:44 | Emergency (ER) | payer OTHER ==
[2023-08-08 20:07] VITALS: RESP 18; TEMP 98.3
[2023-08-08] MEDS ORDERED: KETOROLAC 15 MG/ML 1 ML VIAL IVP STA (20:40)
[2023-08-08] MEDS ORDERED: SODIUM CHLORIDE 0.9% 1,000 ML IV STA (20:40)
[2023-08-08] MEDS ORDERED: ONDANSETRON 4 MG/2 ML VIAL IVP STA (20:40)
[2023-08-08] MEDS ORDERED: PANTOPRAZOLE 40 MG/10 ML VIAL IVP STA (20:40)
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
--- NOTE | 2023-08-08 21:26 | CT ---
EXAMINATION TYPE: CT abdomen pelvis wo con CT DLP: 996.70 mGycm, Automated exposure control for dose reduction was used. DATE OF EXAM: 08/08/2023 9:03 PM COMPARISON: CT abdomen pelvis most recent from CLINICAL INDICATION:Male, 38 years old with history of abdominal pain; ABD PAIN TECHNIQUE: Axial CT of the abdomen and pelvis. Sagittal and coronal reformats were created on a [employer] workstation. Contrast used: mL of , (none if empty) Oral contrast used: without Oral Contrast (none if empty) FINDINGS: LOWER CHEST: Unremarkable ABDOMEN LIVER: Unremarkable GALLBLADDER AND BILE DUCTS: Gallstones are present. PANCREAS: Unremarkable. SPLEEN: Unremarkable. ADRENAL GLANDS: Unremarkable. KIDNEYS AND URETERS: No evidence of hydronephrosis or renal calculus. The ureters are unremarkable. PELVIS BLADDER: Unremarkable REPRODUCTIVE: Unremarkable. ABDOMEN & PELVIS STOMACH AND BOWEL: Few scattered colonic diverticula. The appendix is normal. No evidence of bowel ob struction. PERITONEUM/RETROPERITONEUM: No evidence of pneumoperitoneum or free fluid. VASCULATURE: No evidence of aortic aneurysm. MUSCULOSKELETAL: No acute osseous abnormalities LYMPH NODES: No gross evidence for lymphadenopathy. SOFT TISSUE/ABDOMINAL WALL: Unremarkable IMPRESSION: 1. No evidence for acute abdominal process. 2. Cholelithiasis. 3. Normal appendix 4. Colonic diverticulosis.
[2023-08-08 22:07] LABS: Basophils % (A) 0 %; Eosinophils # (A) 0.1 k/uL (0-0.7); Eosinophils % (A) 1 %; HCT 45.8 % (39.0-53.0); HGB 15.6 gm/dL (13.0-17.5); Lymphocytes # (A) 3.5 k/uL (1.0-4.8); Lymphocytes % (A) 38 %; MCH 28.7 pg (25.0-35.0); MCHC 34.2 g/dL (31.0-37.0); Mean Platelet Volume 7.5; Monocytes # (A) 0.5 k/uL (0-1.0); Monocytes % (A) 5 %; Neutrophils # (A) 5.1 k/uL (1.3-7.7); Neutrophils % (A) 54 %; Platelet Count 244 k/uL (150-450); RBC 5.45 m/uL (4.30-5.90); RDW 13.2 % (11.5-15.5); WBC 9.4 k/uL (3.8-10.6)
[2023-08-08 22:19] LABS: ALT 355 U/L (4-49); AST 137 U/L (17-59); African American GFR (CKD) >90 (>60 ml/min/1.73 sqM); Albumin 4.5 g/dL (3.5-5.0); Alkaline Phosphatase 61 U/L (38-126); Amylase 48 U/L (30-110); Anion Gap 9 mmol/L; Blood Urea Nitrogen 17 mg/dL (9-20); Calcium 9.5 mg/dL (8.4-10.2); Carbon Dioxide 26 mmol/L (22-30); Chloride 104 mmol/L (98-107); Glucose 93 mg/dL (74-99); Lipase 102 U/L (23-300); Non-African American GFR(CKD) >90 (>60 ml/min/1.73 sqM); Sodium 139 mmol/L (137-145); Total Bilirubin 0.8 mg/dL (0.2-1.3); Total Protein 8.4 g/dL (6.3-8.2)
[2023-08-08 23:20] VITALS: BP 139/71; PULSE 80
[2023-08-08 23:54] LABS: Appearance,Urine Clear (Clear); Bacteria,Urine Rare /hpf; Bilirubin,Urine Negative (Negative); Blood,Urine Negative (Negative); Calcium Oxalate Crystals,Urine Rare /hpf; Color,Urine Yellow; Glucose,Urine (UA) Negative (Negative); Ketones,Urine Trace (Negative); Leukocyte Esterase,Urine Trace (Negative); Mucus,Urine Many /hpf; Nitrite,Urine Negative (Negative); PH, Urine 5.5 (5.0-8.0); Protein,Urine 1+ (Negative); RBC,Urine 1 /hpf (0-5); Squamous Epithelial Cell,Urine 1 /hpf (0-4); WBC,Urine 14 /hpf (0-5)
== END 2023-08-08 23:18 | disposition home or self-care (01) ==
LOC: EC 19:44
DX: R10.13 Epigastric pain (principal); R10.33 Periumbilical pain; F17.200 Nicotine dependence, unspecified, uncomplicated; Z86.59 Personal history of other mental and behavioral disorders; Z88.5 Allergy status to narcotic agent
CPT/HCPCS: 36415; 80053; 82150; 83690; 85025; 81001; 74176; 99285; 96374; 96375 ×2; 96361; J2405; J1885; C9113